=== PATIENT | male | born 1965 | race Caucasian/White ===

== ENCOUNTER 2023-01-30 19:55 | Emergency (ER) | payer MEDICAID ==
[~2023-01-30] VITALS: Ht 175.3 cm; Wt 113.6 kg
[2023-01-30 20:36] VITALS: BP 146/96; PULSE 97; RESP 14; TEMP 98.9; O2SAT 98
== END 2023-01-30 22:29 | disposition left against medical advice (07) ==
LOC: ER 19:56
DX: M79.604 Pain in right leg (principal); Z53.21 Procedure and treatment not carried out due to patient leaving prior to being seen by health care provider
CPT/HCPCS: 99281